=== PATIENT | male | born 1995 | race African-American/Black ===

== ENCOUNTER 2018-01-24 16:17 | Emergency (ER) | payer SELFPAY ==
[~2018-01-24] VITALS: Ht 160 cm; Wt 54.4 kg
[~2018-01-24 16:17] MED LIST: KEFLEX500 MG ORAL
[2018-01-24 16:30] VITALS: BP 108/65
[2018-01-24] MEDS ORDERED: PERMETHRIN60 GM TOPIC (17:10)
[2018-01-24] MEDS ORDERED: BENADRYL25 MG ORAL (17:10)
--- NOTE | 2018-01-24 17:11 | Emergency Room Report ---
History of Present Illness General Chief Complaint: Skin Rash/Abscess Source: Patient Present Illness HPI 22-year-old male patient presents ER complaining of rash on her entire body. Reports depression of present for about a week, states extremity ordered. Denies pain. Reports stayed at a friend's house who is currently being seen in ER for similar symptoms. Reports "I think I have scabies". Denies fever, chest pain, shortness breath, vomiting. Denies diarrhea. Denies history of heart disease or other problems. Denies other acute symptoms. Allergies: Coded Allergies: No Known Allergies (Unverified , 10/29/14) Patient History Past Medical History: see triage record Reviewed Nursing Documentation: PMH: Agreed; PSxH: Agreed Nursing Documentation-PMH Past Medical History: No Stated History Review of Systems All Other Systems: negative except mentioned in HPI Physical Exam Vital Signs Date Time Temp Pulse Resp B/P (MAP) Pulse Ox O2 Delivery O2 Flow Rate FiO2 01/24/18 16:21 99.0 68 16 108/65 99 Room Air 99.0 Sp02 EP Interpretation: reviewed, normal General Appearance: well appearing, no apparent distress, alert, GCS 15, non- toxic Head: normocephalic, atraumatic Eyes: bilateral eye normal inspection, bilateral eye PERRL ENT: hearing grossly normal, normal pharynx, no angioedema, normal voice, uvula midline, moist mucus membranes Neck: full range of motion Respiratory: lungs clear, normal breath sounds, no rhonchi, no respiratory distress, no accessory muscle use, no wheezing, speaking full sentences Cardiovascular #1: regular rate, rhythm, no edema Musculoskeletal: back normal, digits/nails normal, gait/station normal, normal range of motion, non-tender Neurologic: alert, oriented x3, responsive, motor strength/tone normal, sensory intact Psychiatric: mood/affect normal Skin: other - erythematous papules noted on bilateral lower extremity, abdomen , back, left axillary region, no surrounding erythema or edema, discolorations noted, no crusting or weeping lesions, no vesicles, no targets, no central clearing Medical Decision Making PA Attestation Dr. Kitchen is my supervising Physician whom patient management has been discussed with. Diagnostic Impression: Primary Impression: Rash and other nonspecific skin eruption ER Course Pt. presents to the ED c/o "I think I have scabies". Ddx considered but are not limited to atopic dermatitis, bug bite, urticaria, allergic reaction scabies. Vital signs: are WNL, pt. is afebrile ER COURSE: Physical exam shows rash consistent with possible scabies, will provide Permethrin for treatment. Advised patient on use of Claritin during the day and Benadryl at night for itching symptoms, SE drowsiness, do not take prior to drinking, driving, operating heavy machinery.. Do not scratch, apply cool compresses to affected area. Followup with PCP and request referral to derm. Advised patient to wash all clothing and bedding. DISCHARGE: -Rx given for Permethrin -Rx given for Benadryl. SE drowsiness, do not take prior to drinking, driving, operating heavy machinery. -Patient instructed to apply cool compresses to affected area. At this time pt. is stable for d/c to home. Patient resting comfortably, in no acute distress, nontoxic appearing. Care plan and follow up instructions have been discussed with the patient prior to discharge. Patient provided with printed patient care instructions, and any necessary prescriptions. Patient instructed to follow-up with primary care provider in 3 - 5 days. Patient questions asked and answered. Patient reports understanding and agreement to treatment plan. ER precautions given. Patient instructed to return to ER immediately for any new or worsening of symptoms including but not limited to increasing SOB, persistent fever. - Please note that this Emergency Department Report was dictated using Mapkinbowling ball patcher technology software, occasionally this can lead to erroneous entry secondary to interpretation by the dictation equipment. Last Vital Signs Date Time Temp Pulse Resp B/P (MAP) Pulse Ox O2 Delivery O2 Flow Rate FiO2 01/24/18 16:21 99.0 68 16 108/65 99 Room Air 99.0 Disposition: HOME, SELF-CARE Condition: Stable Scripts Diphenhydramine Hcl* (BENADRYL*) 25 Mg Capsule 25 MG ORAL Q6H PRN for Itching, #30 CAP Prov: Delmer Huang 01/24/18 Permethrin* (ELIMITE*) 60 Gm Cream..g. 1 APPLIC TOPIC ONCE, #60 GM 0 Refills Apply cream from head to toe; leave on for 8-14 hours before washing off with water; may reapply in 1 week if live mites appear. Prov: Delmer Huang 01/24/18 Patient Instructions: Bedbugs, Nolk-[id number], Scabies, Pediatric Additional Instructions: Followup with primary care provider in 3 -5 days. Request referral to dermatology. Do not scratch or itch. Apply cool compresses to affected area. Take medications as directed. SE Benadryl drowsiness, do not take prior to drinking, driving, operating heavy machinery. Take Claritin during the day for itching. Wash all clothing and bedding. Patient questions asked and answered. ER precautions given, patient instructed to return to ER immediately for any new or worsening of symptoms. [facility] Delmer Huang Jan 24, 2018 17:11
[2018-01-24 17:24] VITALS: BP 111/66
== END 2018-01-24 17:29 | disposition home or self-care (01) ==
LOC: EMR 17:15
DX: R21 Rash and other nonspecific skin eruption (principal)
CPT/HCPCS: 99283

== ENCOUNTER 2018-03-27 00:38 | Inpatient (IN) | payer MEDICAID ==
[2018-03-27] VITALS (8 sets, daily range): BP systolic 110–128; BP diastolic 60–70
[~2018-03-27] VITALS: Ht 160 cm; Wt 56.7 kg
[~2018-03-27 00:38] MED LIST changes: +BENADRYL25 MG ORAL; +PERMETHRIN60 GM TOPIC
--- NOTE | 2018-03-27 00:59 | Emergency Room Report ---
History of Present Illness General Chief Complaint: Abdominal Pain Source: Patient Present Illness HPI Patient presents with paranoid umbilical abdominal pain that's been constantly getting worse since about noon today. He feels nauseated and vomited. Last moved his bowels last night. He felt hot at home but didn't document a fever. He rates the pain at the 7 or 8 this time. Never had surgery before. He lost his appetite and when he moves about pain gets worse. No URI sy, cough, chest pain, anxiety, headache, rashes, joint pain, polies. Previously healthy. Allergies: Coded Allergies: No Known Allergies (Unverified , 10/29/14) Patient History Past Medical History: see triage record Social History: Reports: smoking Social History Narrative working Reviewed Nursing Documentation: PMH: Agreed; PSxH: Agreed Nursing Documentation-PMH Past Medical History: No Stated History Review of Systems All Other Systems: negative except mentioned in HPI Physical Exam Vital Signs Date Time Temp Pulse Resp B/P (MAP) Pulse Ox O2 Delivery O2 Flow Rate FiO2 03/27/18 00:44 98.2 79 16 127/70 96 Room Air Sp02 EP Interpretation: reviewed, normal General Appearance: well appearing, no apparent distress, GCS 15 Head: normocephalic Eyes: bilateral eye normal inspection, bilateral eye PERRL ENT: moist mucus membranes Neck: supple Respiratory: lungs clear, normal breath sounds Cardiovascular #1: regular rate, rhythm Cardiovascular #2: 2+ radial (R) Gastrointestinal: normal inspection, normal bowel sounds, no mass, non- distended, no rebound, guarding - RLQ, tenderness - periumbilical Genitourinary: no CVA tenderness Musculoskeletal: back normal, gait/station normal, normal range of motion Neurologic: alert, oriented x3, grossly normal Psychiatric: mood/affect normal Skin: normal inspection, warm/dry Medical Decision Making Diagnostic Impression: Primary Impression: Abdominal pain Qualified Codes: R10.31 - Right lower quadrant pain ER Course Patient presents with constant periumbilical pain that's worsening. Differential includes gastroenteritis, viral syndrome, mesenteric adenitis and appendicitis. Need to exclude a urinary tract infection also. Evaluation will be with labs and CT the abdomen and pelvis. The patient will receive IV hydration and analgesia. WBC elevated. CMP normal. UA clear. Continued pain with repeated doses of morphine. CT with equivocal results of possible appendicitis and fluid in cul de sac. Repeat exam with referred pain to RLQ and RLQ guarding. High clinical suspicion for appendicitis. Admit med Dr. Barnard. Dr. Lynch contacted for consultation. Laboratory Tests Test 03/27/18 00:59 White Blood Count 11.6 K/UL (4.8-10.8) H Red Blood Count 5.72 M/UL (4.70-6.10) Hemoglobin 16.5 G/DL (14.2-18.0) Hematocrit 48.7 % (42.0-52.0) Mean Corpuscular Volume 85 FL (80-99) Mean Corpuscular Hemoglobin 28.8 PG (27.0-31.0) Mean Corpuscular Hemoglobin Concent 33.9 G/DL (32.0-36.0) Red Cell Distribution Width 11.0 % (11.6-14.8) L Platelet Count 251 K/UL (150-450) Mean Platelet Volume 8.4 FL (6.5-10.1) Neutrophils (%) (Auto) % (45.0-75.0) Lymphocytes (%) (Auto) % (20.0-45.0) Monocytes (%) (Auto) % (1.0-10.0) Eosinophils (%) (Auto) % (0.0-3.0) Basophils (%) (Auto) % (0.0-2.0) Prothrombin Time 12.1 SEC (9.30-11.50) H Prothrombin Time INR 1.2 (0.9-1.1) H PTT 30 SEC (23-33) Urine Color Yellow Urine Appearance Clear Urine pH 8 (4.5-8.0) Urine Specific [place] 1.010 (1.005-1.035) Urine Protein Negative (NEGATIVE) Urine Glucose (UA) Negative (NEGATIVE) Urine Ketones 4+ (NEGATIVE) H Urine Blood Negative (NEGATIVE) Urine Nitrite Negative (NEGATIVE) Urine Bilirubin Negative (NEGATIVE) Urine Urobilinogen 8 MG/DL (0.0-1.0) H Urine Leukocyte Esterase 1+ (NEGATIVE) H Urine RBC 0-2 /HPF (0 - 0) H Urine WBC 0-2 /HPF (0 - 0) Urine Squamous Epithelial Cells None /LPF (NONE/OCC) Urine Bacteria None /HPF (NONE) Sodium Level 137 MMOL/L (136-145) Potassium Level 3.9 MMOL/L (3.5-5.1) Chloride Level 100 MMOL/L (98-107) Carbon Dioxide Level 27 MMOL/L (21-32) Anion Gap 10 mmol/L (5-15) Blood Urea Nitrogen 10 mg/dL (7-18) Creatinine 1.0 MG/DL (0.55-1.30) Estimate Glomerular Filtration Rate > 60 mL/min (>60) Glucose Level 100 MG/DL (74-106) Calcium Level 9.6 MG/DL (8.5-10.1) Total Bilirubin 1.1 MG/DL (0.2-1.0) H Direct Bilirubin 0.2 MG/DL (0.0-0.3) Aspartate Amino Transferase (AST) 15 U/L (15-37) Alanine Aminotransferase (ALT) 15 U/L (12-78) Alkaline Phosphatase 68 U/L (46-116) Total Protein 8.8 G/DL (6.4-8.2) H Albumin 4.4 G/DL (3.4-5.0) Globulin 4.4 g/dL Albumin/Globulin Ratio 1.0 (1.0-2.7) Lipase 109 U/L (73-393) CT/MRI/US Diagnostic Results CT/MRI/US Diagnostic Results : Imaging Test Ordered: abd pelvis Impression unable to exclude appendicitis, fluid in cul de sac. Last Vital Signs Date Time Temp Pulse Resp B/P (MAP) Pulse Ox O2 Delivery O2 Flow Rate FiO2 03/27/18 07:36 98.2 71 17 115/63 99 Room Air 99 Status: improved Disposition: ADMITTED INPATIENT Condition: Serious Juan Mandujano MD Mar 27, 2018 00:59
[2018-03-27] MEDS ORDERED: Morphine Sulfate 4mg/ml Inj (IV/IM USE ONLY) IVP ONE ×3 (01:00→05:15)
[2018-03-27] MEDS ORDERED: Isovue-300 100ml vial INJ PRN (01:00)
[2018-03-27 01:15] LABS: APPEARANCE,URINE CLEAR; BILIRUBIN, URINE NEGATIVE (NEGATIVE); GLUCOSE, URINE (UA) NEGATIVE (NEGATIVE); KETONES,URINE 4+ (NEGATIVE); LEUKOCYTE ESTERASE ,URINE 1+ (NEGATIVE); NITRITE,URINE NEGATIVE (NEGATIVE); PH,URINE 8 (4.5-8.0); PROTEIN,URINE NEGATIVE (NEGATIVE); UROBILINOGEN,URINE 8 MG/DL (0.0-1.0)
[2018-03-27 01:18] LABS: COLOR,URINE YELLOW
[2018-03-27 01:20] LABS: HEMATOCRIT 48.7 % (42.0-52.0); HEMOGLOBIN 16.5 G/DL (14.2-18.0); MEAN CORPUSCULAR VOLUME 85 FL (80-99); PLATELET COUNT 251 K/UL (150-450); RED BLOOD COUNT 5.72 M/UL (4.70-6.10); WHITE BLOOD COUNT 11.6 K/UL (4.8-10.8)
[2018-03-27 01:28] LABS: ANION GAP 10 mmol/L (5-15); BLOOD UREA NITROGEN 10 mg/dL (7-18); CALCIUM 9.6 MG/DL (8.5-10.1); CARBON DIOXIDE 27 MMOL/L (21-32); CHLORIDE 100 MMOL/L (98-107); POTASSIUM 3.9 MMOL/L (3.5-5.1); SODIUM 137 MMOL/L (136-145)
[2018-03-27 01:30] LABS: INR 1.2 (0.9-1.1)
[2018-03-27 01:39] LABS: ALANINE AMINOTRANSFERASE 15 U/L (12-78); ALBUMIN 4.4 G/DL (3.4-5.0); ALKALINE PHOSPHATASE 68 U/L (46-116); ASPARTATE AMINO TRANSFERASE 15 U/L (15-37); BILIRUBIN,TOTAL 1.1 MG/DL (0.2-1.0)
[2018-03-27 01:46] LABS: BILIRUBIN,DIRECT 0.2 MG/DL (0.0-0.3)
[2018-03-27] MEDS ORDERED: Cefepime HCl 1 GM in D5W 55 ML IVPB ONE (05:15)
[2018-03-27] MEDS ORDERED: Morphine Sulfate 2mg/ml Inj IVP PRN (08:30)
[2018-03-27] MEDS: D5NS 1,000 ML IV SCH ×2 (08:45→18:25)
--- NOTE | 2018-03-27 08:59 | Diagnostic Imaging Report ---
Clinical Indication: Abdominal pain Technique: Patient given oral contrast. IV administration nonionic contrast. Venous phase spiral acquisition obtained through the abdomen and pelvis. Multiplanar reconstructions were generated. Total dose length product 404.19 mGycm. CTDIvol(s) 9.1 mGy. Dose reduction achieved using automated exposure control Comparison: none Findings: What is probably a normal appendix is visualized. No evidence of diverticulosis or diverticulitis. The distal and terminal ileum are distended, containing combination of small bowel feces and fluid. This extends to the ileocecal valve. More proximal loops are nondistended. There is trace free pelvic fluid. No free or loculated intraperitoneal gas is evident. The the distal esophagus, stomach, duodenum are unremarkable. The liver demonstrates a subcentimeter low-attenuation lesion in segment 3. The gallbladder, bile ducts, pancreas, spleen, adrenals, kidneys are unremarkable. No retroperitoneal or mesenteric mass or adenopathy. No pelvic mass or adenopathy. The bladder is distended The lung bases are clear. The bones are unremarkable. Impression: . Trace free pelvic fluid, of uncertain etiology, but not physiologic in a male patient Mildly dilated distal ileum with stasis of contents, no definite obstruction. Findings may represent mild ileus or enteritis No acute process otherwise Subcentimeter low-attenuation liver lesion, too small to characterize, most likely benign simple cyst or bile hamartoma Distended bladder This essentially agrees with the [facility] preliminary report, with minor variation The CT scanner at [facility] is accredited by the [employer] and the scans are performed using protocols designed to limit radiation exposure to as low as reasonably achievable to attain images of sufficient resolution adequate for diagnostic evaluation.
[2018-03-27] MEDS ORDERED: Flu Vaccine (Alfuria) for Pts Less than 65 Years old IM ONE (11:00)
--- NOTE | 2018-03-27 12:19 | Consultation ---
History of Present Illness General Date patient seen: Mar 27, 2018 Chief Complaint: Abdominal Pain Reason for Consultation: abdominal pain Present Illness HPI 22 year old otherwise healthy male presented to ED with complaints of worsening abdominal pain x 1 day. lower periumbilical pain. no radiation. 1 episode of non blood emesis. no fever or chills. Has had similar symptoms before but this lasted longer so came in for evaluation. leukocytosis 11k. CT equivocal. concerns for appy. admitted for evaluation. surgery called to evaluate for abdominal pain. patient seen, chart reviewed, patient examined. states improved since admission. Allergies: Coded Allergies: No Known Allergies (Unverified , 10/29/14) Medication History Discontinued Medications Cephalexin* (Keflex*), 500 MG ORAL Q6H Discontinued Reason: Therapy completed Diphenhydramine Hcl* (Benadryl*), 25 MG ORAL Q6H PRN for Itching Discontinued Reason: Therapy completed Permethrin* (Elimite*), 1 APPLIC TOPIC ONCE Discontinued Reason: Therapy completed Patient History History Provided By: Patient, Medical Record, PMD Healthcare decision maker Resuscitation status Full Code Advanced Directive on File Past Medical/Surgical History Past Medical/Surgical History: (1) Laceration (2) Laceration (3) Abdominal pain Review of Systems All Other Systems: negative except mentioned in HPI Physical Exam General Appearance: no apparent distress, alert Lines, tubes and drains: peripheral HEENT: normocephalic, atraumatic, anicteric, mucous membranes moist, PERRL Respiratory/Chest: chest wall non-tender, lungs clear, normal breath sounds, no respiratory distress, no accessory muscle use Cardiovascular/Chest: regular rhythm Abdomen: normal bowel sounds, non tender, soft, no organomegaly, no mass, other - minimal maureen-umbilical and RLQ tenderness / discomfort Extremities: normal inspection Skin Exam: warm/dry Neurologic: alert, oriented x 3 Last 24 Hour Vital Signs Date Time Temp Pulse Resp B/P (MAP) Pulse Ox O2 Delivery O2 Flow Rate FiO2 03/27/18 09:00 Room Air 03/27/18 08:35 Room Air 03/27/18 07:36 98.2 71 17 115/63 99 Room Air 99 03/27/18 07:35 98.2 71 17 115/63 99 Room Air 03/27/18 06:38 98.2 76 16 110/60 99 Room Air 03/27/18 05:53 98.2 03/27/18 04:47 98.2 77 16 128/68 99 Room Air 03/27/18 02:42 98.2 100 16 114/69 99 Room Air 03/27/18 01:04 98.3 03/27/18 01:04 98.3 03/27/18 00:50 79 16 Room Air 99 03/27/18 00:50 98.2 91 16 127/70 99 Room Air 03/27/18 00:44 98.2 79 16 127/70 96 Room Air Laboratory Tests Test 03/27/18 00:59 White Blood Count 11.6 K/UL (4.8-10.8) H Red Blood Count 5.72 M/UL (4.70-6.10) Hemoglobin 16.5 G/DL (14.2-18.0) Hematocrit 48.7 % (42.0-52.0) Mean Corpuscular Volume 85 FL (80-99) Mean Corpuscular Hemoglobin 28.8 PG (27.0-31.0) Mean Corpuscular Hemoglobin Concent 33.9 G/DL (32.0-36.0) Red Cell Distribution Width 11.0 % (11.6-14.8) L Platelet Count 251 K/UL (150-450) Mean Platelet Volume 8.4 FL (6.5-10.1) Neutrophils (%) (Auto) % (45.0-75.0) Lymphocytes (%) (Auto) % (20.0-45.0) Monocytes (%) (Auto) % (1.0-10.0) Eosinophils (%) (Auto) % (0.0-3.0) Basophils (%) (Auto) % (0.0-2.0) Prothrombin Time 12.1 SEC (9.30-11.50) H Prothromb Time International Ratio 1.2 (0.9-1.1) H Activated Partial Thromboplast Time 30 SEC (23-33) Urine Color Yellow Urine Appearance Clear Urine pH 8 (4.5-8.0) Urine Specific [place] 1.010 (1.005-1.035) Urine Protein Negative (NEGATIVE) Urine Glucose (UA) Negative (NEGATIVE) Urine Ketones 4+ (NEGATIVE) H Urine Blood Negative (NEGATIVE) Urine Nitrite Negative (NEGATIVE) Urine Bilirubin Negative (NEGATIVE) Urine Urobilinogen 8 MG/DL (0.0-1.0) H Urine Leukocyte Esterase 1+ (NEGATIVE) H Urine RBC 0-2 /HPF (0 - 0) H Urine WBC 0-2 /HPF (0 - 0) Urine Squamous Epithelial Cells None /LPF (NONE/OCC) Urine Bacteria None /HPF (NONE) Sodium Level 137 MMOL/L (136-145) Potassium Level 3.9 MMOL/L (3.5-5.1) Chloride Level 100 MMOL/L (98-107) Carbon Dioxide Level 27 MMOL/L (21-32) Anion Gap 10 mmol/L (5-15) Blood Urea Nitrogen 10 mg/dL (7-18) Creatinine 1.0 MG/DL (0.55-1.30) Estimat Glomerular Filtration Rate > 60 mL/min (>60) Glucose Level 100 MG/DL (74-106) Calcium Level 9.6 MG/DL (8.5-10.1) Total Bilirubin 1.1 MG/DL (0.2-1.0) H Direct Bilirubin 0.2 MG/DL (0.0-0.3) Aspartate Amino Transf (AST/SGOT) 15 U/L (15-37) Alanine Aminotransferase (ALT/SGPT) 15 U/L (12-78) Alkaline Phosphatase 68 U/L (46-116) Total Protein 8.8 G/DL (6.4-8.2) H Albumin 4.4 G/DL (3.4-5.0) Globulin 4.4 g/dL Albumin/Globulin Ratio 1.0 (1.0-2.7) Lipase 109 U/L (73-393) Height (Feet): 5 Height (Inches): 3.00 Weight (Pounds): 125 Medications Current Medications Medications (Trade) Dose Ordered Sig/Randy Route PRN Reason Start Time Stop Time Status Last Admin Dose Admin Barium Sulfate (Readi-Cat 2) 450 ml NOW PRN ORAL Radiology Procedure 03/27/18 01:00 03/29/18 00:56 Dextrose/Sodium Chloride 1,000 ml @ 100 mls/hr Q10H IV 03/27/18 09:00 04/26/18 08:59 03/27/18 08:45 Iopamidol (Isovue-300 100ml) 100 ml NOW PRN INJ Radiology Procedure 03/27/18 01:00 Morphine Sulfate (Morphine Sulfate) 2 mg Q4H PRN IVP For Pain 03/27/18 08:30 04/03/18 08:29 Piperacillin Sod/ Tazobactam Sod 3.375 gm/Dextrose 110 ml @ 27.5 mls/hr EVERY 8 HOURS IVPB 03/27/18 15:00 04/01/18 14:59 Assessment/Plan Problem List: (1) Abdominal pain Assessment & Plan: likely enteritis clinically symptoms not consistent with appendicitis -trail diet -d/c planning thank you ICD Codes: R10.9 - Unspecified abdominal pain SNOMED: 54492342 Qualifiers: Qualified Codes: R10.31 - Right lower quadrant pain Status: stable Fredy Lynch Mar 27, 2018 12:19
--- NOTE | 2018-03-27 15:00 | History and Physical Report ---
DATE OF ADMISSION: 03/27/2018 CHIEF COMPLAINT: Possible appendicitis. HISTORY OF PRESENT ILLNESS: The patient is a pleasant 22-year-old male with no past medical history, who presents with three days of progressive abdominal pain, nausea, and vomiting. According to the patient, he was well until several days prior to admission. He describes dull midepigastric abdominal pain and anorexia. Pain became severe on the night of admission and the patient presented to emergency room. On evaluation there, he was noted to have a slightly elevated white count. CAT scan did not show any acute appendicitis, but the reading was unclear. He was started on antibiotics and now admitted for surgical evaluation. PAST MEDICAL HISTORY: None. PAST SURGICAL HISTORY: None. CURRENT MEDICATIONS: None. FAMILY HISTORY: None. SOCIAL HISTORY: Negative for tobacco and ethanol. The patient smokes marijuana. PHYSICAL EXAMINATION: VITAL SIGNS: Temperature 98 degrees, pulse 71, respirations 17, blood pressure 115/63. GENERAL: The patient is well developed, in no apparent distress. HEART: Regular. LUNGS: Clear. ABDOMEN: Soft. Minimally tender in the midepigastric region. There is no rebound or guarding. EXTREMITIES: Without clubbing or cyanosis. LABORATORY DATA: White count was 12. CT scan results were reviewed. ASSESSMENT: This is a pleasant male admitted with complaint of abdominal pain suspicious for appendicitis. CT scan reading is unclear. PLAN: IV antibiotics. Surgical evaluation. Wait for the hospital radiologist review of CAT scan. Plan of care will be determined after review of the above and discussion with consulting physician. Hunter Barnard M.D. DR: Eros JOB#: [id number] CC:
[2018-03-27] MEDS: Piperacillin/Tazobactam 3.375 GM in D5W 110 ML IVPB SCH ×2 (15:02→22:53)
[2018-03-28] VITALS: BP 100/65
[2018-03-28 04:00] VITALS: BP 102/66
[2018-03-28] MEDS: Piperacillin/Tazobactam 3.375 GM in D5W 110 ML IVPB SCH (05:39)
[2018-03-28] MEDS: D5NS 1,000 ML IV SCH (05:39)
--- NOTE | 2018-03-28 06:00 | General Progress Note ---
Assessment/Plan Problem List: (1) Gastroenteritis ICD Codes: K52.9 - Noninfective gastroenteritis and colitis, unspecified SNOMED: 93311452 (2) Abdominal pain ICD Codes: R10.9 - Unspecified abdominal pain SNOMED: 09040645 Qualifiers: Qualified Codes: R10.31 - Right lower quadrant pain Status: stable Assessment/Plan regular diet dc planning outpt follow up with pmd Subjective ROS Limited/Unobtainable: No Constitutional: Reports: malaise, weakness HEENT: Reports: no symptoms Cardiovascular: Reports: no symptoms Respiratory: Reports: no symptoms Gastrointestinal/Abdominal: Reports: no symptoms Genitourinary: Reports: no symptoms Neurologic/Psychiatric: Reports: no symptoms Endocrine: Reports: no symptoms Hematologic/Lymphatic: Reports: no symptoms Allergies: Coded Allergies: No Known Allergies (Unverified , 10/29/14) All Systems: reviewed and negative except above Subjective better. surgery appreciated. tolerating soft diet. ct finding reviewed with radiology. no appendicitis. ?ileus or enteritis. Objective Last 24 Hour Vital Signs Date Time Temp Pulse Resp B/P (MAP) Pulse Ox O2 Delivery O2 Flow Rate FiO2 03/28/18 04:00 97.8 68 20 102/66 (78) 100 03/28/18 00:00 97.7 62 20 100/65 (77) 100 03/27/18 21:00 Room Air 03/27/18 20:00 98.9 80 16 121/63 (82) 97 03/27/18 16:00 97.7 62 20 125/65 (85) 97 03/27/18 12:00 97.3 58 20 127/60 (82) 98 03/27/18 09:00 Room Air 03/27/18 08:35 Room Air 03/27/18 07:36 98.2 71 17 115/63 99 Room Air 99 03/27/18 07:35 98.2 71 17 115/63 99 Room Air 03/27/18 06:38 98.2 76 16 110/60 99 Room Air Intake and Output 03/27/18 03/28/18 18:59 06:59 Intake Total 4800 ml 610.0 ml Balance 4800 ml 610.0 ml Intake Oral 1100 ml IV Total 3700 ml 610.0 ml # Voids 8 # Bowel Movements 1 Height (Feet): 5 Height (Inches): 3.00 Weight (Pounds): 125 General Appearance: WD/WN Abdomen: normal bowel sounds, non tender, soft, no organomegaly, no mass Hunter Barnard MD Mar 28, 2018 06:00
[2018-03-28 07:11] LABS: ANION GAP 6 mmol/L (5-15); BLOOD UREA NITROGEN 5 mg/dL (7-18); CALCIUM 8.8 MG/DL (8.5-10.1); CARBON DIOXIDE 30 MMOL/L (21-32); CHLORIDE 105 MMOL/L (98-107); CREATININE 1.2 MG/DL (0.55-1.30); POTASSIUM 3.7 MMOL/L (3.5-5.1); SODIUM 141 MMOL/L (136-145)
[2018-03-28 07:13] LABS: BASOPHILS % (AUTO) 0.7 % (0.0-2.0); EOSINOPHILS % (AUTO) 1.6 % (0.0-3.0); HEMATOCRIT 41.3 % (42.0-52.0); HEMOGLOBIN 14.3 G/DL (14.2-18.0); LYMPHOCYTES % (AUTO) 15.3 % (20.0-45.0); MEAN CORPUSCULAR VOLUME 86 FL (80-99); MONOCYTES % (AUTO) 10.1 % (1.0-10.0); NEUTROPHILS % (AUTO) 72.3 % (45.0-75.0); PLATELET COUNT 206 K/UL (150-450); RED BLOOD COUNT 4.79 M/UL (4.70-6.10); RED CELL DISTRIBUTION WIDTH 11.3 % (11.6-14.8); WHITE BLOOD COUNT 7.4 K/UL (4.8-10.8)
[2018-03-28 08:00] VITALS: BP 112/63
--- NOTE | 2018-03-28 10:57 | General Surgery Progress Note ---
General Surgery-Progress Note Subjective Symptoms: improved, pain absent, tolerating diet, passing flatus, BM Additional Comments symptoms resolved. Objective Last 24 Hour Vital Signs Date Time Temp Pulse Resp B/P (MAP) Pulse Ox O2 Delivery O2 Flow Rate FiO2 03/28/18 04:00 97.8 68 20 102/66 (78) 100 03/28/18 00:00 97.7 62 20 100/65 (77) 100 03/27/18 21:00 Room Air 03/27/18 20:00 98.9 80 16 121/63 (82) 97 03/27/18 16:00 97.7 62 20 125/65 (85) 97 03/27/18 12:00 97.3 58 20 127/60 (82) 98 I&O Intake and Output 03/27/18 03/28/18 19:00 07:00 Intake Total 4800 ml 937.5 ml Balance 4800 ml 937.5 ml Intake Oral 1100 ml 300 ml IV Total 3700 ml 637.5 ml # Voids 8 3 # Bowel Movements 1 Drains: none Cardiovascular: RSR Respiratory: clear Abdomen: soft, flat, non-tender, present bowel sounds Extremities: no tenderness, no cyanosis Laboratory Tests Test 03/28/18 05:30 White Blood Count 7.4 K/UL (4.8-10.8) Red Blood Count 4.79 M/UL (4.70-6.10) Hemoglobin 14.3 G/DL (14.2-18.0) Hematocrit 41.3 % (42.0-52.0) L Mean Corpuscular Volume 86 FL (80-99) Mean Corpuscular Hemoglobin 29.8 PG (27.0-31.0) Mean Corpuscular Hemoglobin Concent 34.5 G/DL (32.0-36.0) Red Cell Distribution Width 11.3 % (11.6-14.8) L Platelet Count 206 K/UL (150-450) Mean Platelet Volume 8.6 FL (6.5-10.1) Neutrophils (%) (Auto) 72.3 % (45.0-75.0) Lymphocytes (%) (Auto) 15.3 % (20.0-45.0) L Monocytes (%) (Auto) 10.1 % (1.0-10.0) H Eosinophils (%) (Auto) 1.6 % (0.0-3.0) Basophils (%) (Auto) 0.7 % (0.0-2.0) Sodium Level 141 MMOL/L (136-145) Potassium Level 3.7 MMOL/L (3.5-5.1) Chloride Level 105 MMOL/L (98-107) Carbon Dioxide Level 30 MMOL/L (21-32) Anion Gap 6 mmol/L (5-15) Blood Urea Nitrogen 5 mg/dL (7-18) L Creatinine 1.2 MG/DL (0.55-1.30) Estimat Glomerular Filtration Rate > 60 mL/min (>60) Glucose Level 91 MG/DL (74-106) Calcium Level 8.8 MG/DL (8.5-10.1) Plan Problems: (1) Abdominal pain Assessment & Plan: likely enteritis clinically symptoms not consistent with appendicitis symptoms resolved today labs okay d/c home f/u prn thank you Fredy Lynch Mar 28, 2018 10:57
[2018-03-28] MEDS ORDERED: D5NS 1000ml IV ONE (12:24)
--- NOTE | 2018-03-29 10:01 | Discharge Summary ---
Discharge Summary Discharge Summary _ DATE OF ADMISSION: 03/27/2018 DATE OF DISCHARGE: 03/28/2018 REASON FOR ADMISSION: 22 years old male without past medical history ,presented with abdominal pain in periumbilical region. Upon evaluation vital signs were stable ,no fever . Laboratory workup revealed mild leukocytosis WBC 11.6, stable electrolytes , renal parameters, LFT. CT of the abdomen revealed trace of free pelvic fluid non-physiological in male patient. There was suspicion of appendicitis. Patient admitted with diagnosis of abdominal pain, rule out appendicitis. CONSULTANTS: surgery Dr. Lynch [facility] COURSE: Patient admitted to medical surgical floor. Surgery consult was requested. CT abdomen and pelvis revealed mildly dilated distal ileum with stasis of contents, no definite obstruction. Findings possibly representing mild ileus or enteritis. No acute process otherwise Patient started on IV fluids and empiric antibiotics and initially kept NPO. Pain management was addressed. Antiemetics provided as needed. Per surgical evaluation , patient likely had enteritis /gastroenteritis. Abdominal exam was unremarkable. Clinical symptoms were not consistent with appendicitis . Leukocytosis resolved next day, no fever, no acute abdomen on clinical examination. Clinical picture was consistent with enteritis. Patient started on liquid diet and was advance as tolerated. Stool for C. difficile was negative. Supportive care provided. Pain management was addressed and pain was controlled. Patient was able to tolerate diet. Patient was stable for discharge home. Due to rapid and unexpected improvement in patient's condition, patient was discharged in one day. FINAL DIAGNOSES: Gastroenteritis Abdominal pain secondary to gastroenteritis- resolved DISCHARGE MEDICATIONS: None DISCHARGE INSTRUCTIONS: Patient was discharged home. Follow up with primary care provider. I have been assigned to dictate discharge summary for this account. I was not involved in the patient's management. Renetta Veloz NP Mar 29, 2018 10:01
== END 2018-03-28 12:25 | disposition home or self-care (01) | DRG 249 ==
LOC: EMR 00:58 → 4E 05:54 → EDBEDREQ 07:00
DX: K52.9 Noninfective gastroenteritis and colitis, unspecified (principal)
CPT/HCPCS: 36415; 74177; 80048; 80053; 81003; 82248; 83690; 85025; 85610; 85730; 86850; 86900; 86901; 87324; 90686; 96361; 96365; 96375; 96376; 99285; J2405

== ENCOUNTER 2018-08-20 16:32 | Emergency (ER) | payer MEDICAID ==
[~2018-08-20] VITALS: Ht 160 cm; Wt 54.4 kg
[2018-08-20 16:35] VITALS: BP 128/70
[2018-08-20] MEDS ORDERED: NKM (16:39)
--- NOTE | 2018-08-20 16:45 | NUR ---
ED Nurse Note: Patient walked into ED c/o sorethroat started 2-3 days ago. patient is alert awake x4 ambulatory breathing even and unlabored.
[2018-08-20] MEDS ORDERED: TYLENOL EXTRA500 MG ORAL (17:00)
--- NOTE | 2018-08-20 17:06 | NUR ---
ER DISCHARGE NOTE: Patient is cleared to be discharged per ERMD, pt is aox4, on room air, with stable vital signs. pt was given dc and prescription instructions, pt was able to verbalize understanding, pt id band removed without complications. pt is able to ambulate with steady gait. pt took all belongings.
[2018-08-20 17:07] VITALS: BP 128/70
--- NOTE | 2018-08-20 17:29 | Emergency Room Report ---
History of Present Illness General Chief Complaint: Sore Throat Source: Patient Present Illness HPI 23-year-old male resents ED for evaluation. Patient plating of sore throat for the last 3 days. Pain is dull, 7 out of 10, nonradiating. Hurts to swallow. Denies fevers or chills. Denies cough. States he has a runny nose and congestion. Denies sick contacts or recent travel. No other aggravating relieving factors. Denies any other associated symptoms Allergies: Coded Allergies: No Known Allergies (Unverified , 10/29/14) Patient History Past Medical History: GERD Past Surgical History: none Pertinent Family History: none Social History: Denies: smoking, alcohol use, drug use Immunizations: UTD Reviewed Nursing Documentation: PMH: Agreed; PSxH: Agreed Nursing Documentation-PMH Past Medical History: No History, Except For Hx Cardiac Problems: No Hx Cancer: No Hx Gastrointestinal Problems: Yes Hx Neurological Problems: No Review of Systems All Other Systems: negative except mentioned in HPI Physical Exam Vital Signs Date Time Temp Pulse Resp B/P (MAP) Pulse Ox O2 Delivery O2 Flow Rate FiO2 08/20/18 16:35 99.0 74 16 128/70 97 Room Air Sp02 EP Interpretation: reviewed, normal General Appearance: no apparent distress, alert, GCS 15, non-toxic Head: normocephalic, atraumatic Eyes: bilateral eye normal inspection, bilateral eye PERRL ENT: hearing grossly normal, normal pharynx, no angioedema, normal voice Neck: full range of motion, supple/symm/no masses Respiratory: chest non-tender, lungs clear, normal breath sounds, speaking full sentences Cardiovascular #1: regular rate, rhythm, no edema Cardiovascular #2: 2+ carotid (R), 2+ carotid (L), 2+ radial (R), 2+ radial (L) , 2+ dorsalis pedis (R), 2+ dorsalis pedis (L) Gastrointestinal: normal bowel sounds, non tender, soft, non-distended, no guarding, no rebound Rectal: deferred Genitourinary: normal inspection, no CVA tenderness Musculoskeletal: back normal, gait/station normal, normal range of motion, non- tender Neurologic: alert, oriented x3, responsive, motor strength/tone normal, sensory intact, speech normal Psychiatric: judgement/insight normal, memory normal, mood/affect normal, no suicidal/homicidal ideation Reflexes: 3+ bicep (R), 3+ bicep (L), 3+ tricep (R), 3+ tricep (L), 3+ knee (R) , 3+ knee (L) Skin: normal color, no rash, warm/dry, well hydrated Lymphatic: no adenopathy Medical Decision Making Diagnostic Impression: Primary Impression: Pharyngitis with viral syndrome ER Course Hospital Course 23 yo M presents to ED c/o sore throat Differential diagnoses include: URI, pharyngitis, otitis media Clinical course Patient placed on stretcher. After initial history, physical exam reveals a young male in no acute distress. Bilateral TM unremarkable. There is minimal pharyngeal erythema w/o tonsillar exudates. cervical lymphadenopathy. Based on Cent[facility] criteria, unlikely strep pharyngitis. More likely viral discussed findings with patient. No antibodies indicated at this time. Typical viral course is self-limited. We'll discharge with Tylenol. states he has a PMD. Safe for discharge close outpatient follow-up Diagnosis - pharyngitis with viral syndrome Stable and discharged home with prescriptions for tylenol. Instructed to followup with PMD. return to ED if symptoms recur or worsen Last Vital Signs Date Time Temp Pulse Resp B/P (MAP) Pulse Ox O2 Delivery O2 Flow Rate FiO2 08/20/18 17:07 99.0 74 16 128/70 97 Room Air Status: improved Disposition: HOME, SELF-CARE Condition: Stable Scripts Acetaminophen* (TYLENOL EXTRA STRENGTH*) 500 Mg Tablet 500 MG ORAL Q8H PRN for Prn Headache/Temp > 101, #30 TAB 0 Refills Prov: Juanito Castillo MD 08/20/18 Patient Instructions: Pharyngitis, [id number] Juanito Castillo MD Aug 20, 2018 17:29
== END 2018-08-20 17:10 | disposition home or self-care (01) ==
LOC: EMR 17:09
DX: J02.9 Acute pharyngitis, unspecified (principal); B34.9 Viral infection, unspecified; K21.9 Gastro-esophageal reflux disease without esophagitis
CPT/HCPCS: 99282